=== PATIENT | female | born 1995 | race Caucasian/White ===

== ENCOUNTER 2017-12-23 04:33 | Observation (INO) | payer OTHER ==
[2017-12-23] VITALS (7 sets, daily range): BP systolic 100–108; BP diastolic 53–65; PULSE 80–103; RESP 16–18; TEMP 97.6–98.4; O2SAT 96–100
[~2017-12-23] VITALS: Ht 170.2 cm; Wt 60.0 kg
[2017-12-23] MEDS ORDERED: SODIUM CHLORID 0.9% 500 ML INJ 500 ML IV ONE (05:15)
--- NOTE | 2017-12-23 05:30 | PD ---
HPI Chief Complaint: Injury Time Seen by Provider: 05:06 Travel History International Travel<30 days: No Contact w/Intl Traveler<30days: No Traveled to known affect area: No History of Present Illness HPI The patient is a 22 year old female who presents to the [facility] emergency department with a history of losing her balance and inverting her ankle at approximately 3:30 AM. The patient arrives in the emergency department at approximately 5 AM with complaints of left ankle pain. The patient is intoxicated and initially refusing to have an x-ray or IV access obtained in spite of having a left ankle that is deformed and unable to support her weight. The patient's friends are the bedside. The patient is visiting from [place]. Her sister was called by the patient's friends and the patient seemed to become more calm after speaking to her sister. She reports that she has been attempting to walk on her ankle, however it does not support her. She denies falling and hitting her head. She denies having any loss of consciousness. She denies having any neck pain, paresthesias, or weakness of the muscles of her extremities. Otherwise on review of systems, she denies having any recent fevers, cough, congestion, neck pain, chest pain, shortness of breath, abdominal pain, vomiting, diarrhea, urinary symptoms, or other neurologic symptoms. [facility] Past Medical History Narrative Medical The patient's past medical history is reportedly none. Medical History: Denies Significant Hx ?: Not Past Surgical History Surgical History: No Previous Surgery Social History Alcohol Use: Yes Tobacco Use: No Substance Use: No Allergies-Medications (Allergen,Severity, Reaction): Coded Allergies: No Known Allergies (Unverified , 12/23/17) Reported Meds & Prescriptions Reported Meds & Active Scripts Active Aspirin DR (Aspirin) 81 Mg Tabdr 81 Mg PO BID Hydrocodone-Acetamin 10-325 mg (Hydrocodone/Acetaminophen) 10 Mg-325 Mg Tablet 1 Tab PO Q4HR PRN Review of Systems Except as stated in HPI: all other systems reviewed are Neg General / Constitutional: No: Fever Eyes: No: Visual changes HENT: No: Headaches Cardiovascular: No: Chest Pain or Discomfort Respiratory: No: Shortness of Breath Gastrointestinal: No: Abdominal Pain Genitourinary: No: Dysuria Musculoskeletal: Positive: Myalgias, Arthralgias, Limited ROM, Edema, Pain Skin: No Rash Neurologic: Positive: Change in Mentation, Slurred Speech, No: Weakness, Focal Abnormalities, Sensory Disturbance Psychiatric: Positive: Substance Abuse, No: Depression Endocrine: No: Polydipsia Hematologic/Lymphatic: No: Easy Bruising Physical Exam Narrative General: The patient is a well-developed well-nourished female in no acute distress, initially uncooperative, refusing to have IV access obtained, or any type of imaging done in spite of having a deformed appearing ankle. Head and Neck exam: Head is normocephalic atraumatic. Eyes: EOMI, pupils are equal round and reactive to light. Nose: Midline septum with pink mucous membranes Mouth: Dentition unremarkable. Moist mucus membranes. Posterior oropharynx is not erythematous. No tonsillar hypertrophy. Uvula midline. Airway patent. Neck: No palpable lymphadenopathy. No nuchal rigidity. No thyromegaly. Cardiovascular: Regular rate and rhythm without murmurs, gallops, or rubs. Lungs: Clear to auscultation bilaterally. No wheezes, rhonchi, or rales. Abdomen: Soft, without tenderness to palpation in all 4 quadrants of the abdomen. No guarding, rebound, or rigidity. Normal bowel sounds are audible. No tenderness on palpation of McBurney's point. Extremities: No clubbing, cyanosis, or edema, except in the area of interest, the left ankle. The patient is noted to have deformity, crepitus on palpation of the distal ankle. There is tenderness on palpation of the medial and lateral malleolus. There is significant swelling over the distal tibia. The patient does however have soft compartments. She has intact sensation over all toes. She has less than 3 second capillary refill. 2+ pulses in all 4 extremities. Back: No spinous process tenderness to palpation. No costovertebral angle tenderness to palpation. Neurologic Exam: Grossly nonfocal with a strong odor of alcohol about her. The patient also has slurred speech. Skin Exam: No rash noted. Intact skin that is warm and dry. Data Data Last Documented VS Vital Signs Date Time Temp Pulse Resp B/P (MAP) Pulse Ox O2 Delivery O2 Flow Rate FiO2 12/23/17 04:34 98.4 91 16 108/58 (75) 100 Orders Orders Complete Blood Count With Diff (12/23/17 05:06) Basic Metabolic Panel (Bmp) (12/23/17 05:06) Prothrombin Time / Inr (Pt) (12/23/17 05:06) Act Partial Throm Time (Ptt) (12/23/17 05:06) Iv Access Insert/Monitor (12/23/17 05:06) Ecg Monitoring (12/23/17 05:06) Oximetry (12/23/17 05:06) Ed Urine Pregnancytest Poc (12/23/17 05:06) Sodium Chlorid 0.9% 500 Ml Inj (Ns 500 M (12/23/17 05:15) Ankle, Complete (Fel7iwz) (12/23/17 05:30) Tibia/Fibula (Ap/Lat) (12/23/17 05:30) Morphine Inj (Morphine Inj) (12/23/17 06:00) Ondansetron Inj (Zofran Inj) (12/23/17 06:00) Ice/Cold Pack (12/23/17 05:48) Splint Or Brace Apply/Monitor (12/23/17 05:48) Admit Order (Ed Use Only) (12/23/17 06:31) Consult Orthopedic (12/23/17 ) Alcohol (Ethanol) (12/23/17 06:36) Labs Laboratory Tests Test 12/23/17 05:16 White Blood Count 6.5 TH/MM3 Red Blood Count 4.18 MIL/MM3 Hemoglobin 12.6 GM/DL Hematocrit 36.5 % Mean Corpuscular Volume 87.3 FL Mean Corpuscular Hemoglobin 30.1 PG Mean Corpuscular Hemoglobin Concent 34.5 % Red Cell Distribution Width 13.9 % Platelet Count 223 TH/MM3 Mean Platelet Volume 9.8 FL Neutrophils (%) (Auto) 51.2 % Lymphocytes (%) (Auto) 41.2 % Monocytes (%) (Auto) 6.8 % Eosinophils (%) (Auto) 0.5 % Basophils (%) (Auto) 0.3 % Neutrophils # (Auto) 3.3 TH/MM3 Lymphocytes # (Auto) 2.7 TH/MM3 Monocytes # (Auto) 0.4 TH/MM3 Eosinophils # (Auto) 0.0 TH/MM3 Basophils # (Auto) 0.0 TH/MM3 CBC Comment DIFF FINAL Differential Comment Prothrombin Time 9.7 SEC Prothromb Time International Ratio 1.0 RATIO Activated Partial Thromboplast Time 21.2 SEC Blood Urea Nitrogen 9 MG/DL Creatinine 0.79 MG/DL Random Glucose 91 MG/DL Calcium Level 7.8 MG/DL Sodium Level 141 MEQ/L Potassium Level 3.6 MEQ/L Chloride Level 106 MEQ/L Carbon Dioxide Level 25.9 MEQ/L Anion Gap 9 MEQ/L Estimat Glomerular Filtration Rate 93 ML/MIN Ethyl Alcohol Level 271 MG/DL MDM Medical Decision Making Medical Screen Exam Complete: Yes Emergency Medical Condition: Yes Medical Record Reviewed: Yes Differential Diagnosis Left ankle fracture, versus dislocation, versus fracture dislocation, versus soft tissue swelling Narrative Course During the course of the patient's emergency department visit, the patient's history, examination, and differential diagnosis were reviewed with the patient. The patient eventually did consent to care. The patient was placed on a inspector filter tip with oximetry and frequent blood pressure monitoring. The patient had IV access obtained and blood work sent for analysis. The patient was initially provided normal saline IV fluids, morphine for pain, Zofran for nausea The patient's studies were reviewed and remarkable for CBC that is within normal limit, and basic metabolic profile that is unremarkable. PT 9.7, PTT 21.2, alcohol level 271. The patient's ankle x-ray reveals a bimalleolar fracture with disruption of the ankle mortise. Tib-fib x-ray shows no other bony abnormality. The patient was placed in a Ferreira splint. A call was placed out to the orthopedic physician on-call, . She recommended that the patient be admitted to the hospitalist service. The patient's results were discussed with the patient, including the plan of care. I explained that further testing and/ or monitoring is indicated based on the patient's history, examination, and/ or laboratory findings. Therefore, I recommended admission for additional evaluation. The patient expressed understanding and was agreeable with this plan. The patient was admitted to the hospital in stable condition and [facility] Physician Communication Physician Communication The patient's case including history, pertinent physical examination findings, and laboratory studies were discussed with Dr. Starks and Dr. Flores. It was agreed that the [facility] Diagnosis Primary Impression: Bimalleolar ankle fracture Qualified Codes: S82.842A - Displaced bimalleolar fracture of left lower leg, initial encounter for closed fracture Admitting Information Admitting Physician Requests: Admit Scripts Aspirin DR (Aspirin DR) 81 Mg Tabdr 81 MG PO BID for Prevent Blood Clot, #60 TAB Prov: Terence Erwin MD 12/23/17 Hydrocodone/Acetaminophen (Hydrocodone-Acetamin 10-325 mg) 10 Mg-325 Mg Tablet 1 TAB PO Q4HR Y for Pain, #42 TAB Prov: Terence Erwin MD 12/23/17 Alayna Pastrana MD Dec 23, 2017 05:30
[2017-12-23 05:37] LABS: AUTOMATED NEUTROPHIL # 3.3 TH/MM3 (1.8-7.7); BASOPHIL % 0.3 % (0.0-2.0); EOSINOPHIL % 0.5 % (0.0-4.0); HEMATOCRIT 36.5 % (35.0-46.0); HEMOGLOBIN 12.6 GM/DL (11.6-15.3); LYMPH % 41.2 % (9.0-44.0); LYMPHOCYTE # 2.7 TH/MM3 (1.0-4.8); MEAN CELL VOLUME 87.3 FL (80.0-100.0); MEAN CORPUSCULAR HEMOGLOBIN 30.1 PG (27.0-34.0); MEAN CORPUSCULAR HGB CONC 34.5 % (32.0-36.0); MEAN PLATELET VOLUME 9.8 FL (7.0-11.0); MONO % 6.8 % (0.0-8.0); MONOCYTE # 0.4 TH/MM3 (0-0.9); NEUT % 51.2 % (16.0-70.0); PLATELET COUNT 223 TH/MM3 (150-450); RED BLOOD COUNT 4.18 MIL/MM3 (4.00-5.30); RED CELL DISTRIBUTION WIDTH 13.9 % (11.6-17.2); WHITE BLOOD COUNT 6.5 TH/MM3 (4.0-11.0)
[2017-12-23 05:55] LABS: PROTHROMBIN TIME - PATIENT 9.7 SEC (9.8-11.6)
[2017-12-23] MEDS ORDERED: ONDANSETRON HCL 4 MG/2 ML VIAL IV PUSH ONE (06:00)
[2017-12-23] MEDS ORDERED: MORPHINE SULFATE 2 MG/ML INJ IV PUSH ONE (06:00)
--- NOTE | 2017-12-23 06:00 | RADRPT ---
EXAM DATE/TIME: 12/23/2017 05:31 [facility] COMPARISON: No previous studies available for comparison. INDICATIONS : Fall pain in left ankle. MEDICAL HISTORY : None. SURGICAL HISTORY : None. ENCOUNTER: Initial ACUITY: 1 day PAIN SCORE: 5/10 LOCATION: Left ankle FINDINGS: Two view examination of the left tibia demonstrates oblique fracture distal fibula. Soft tissue swell ing. Medial malleolus fracture. Bony mineralization is normal. The soft tissue structures are intac t. CONCLUSION: Bimalleolar fracture. Garland Caruso MD on December 23, 2017 at 5:56 Board Certified Radiologist. This report was verified electronically.
--- NOTE | 2017-12-23 06:01 | RADRPT ---
EXAM DATE/TIME: 12/23/2017 05:39 [facility] COMPARISON: No previous studies available for comparison. INDICATIONS : Fall pain in left ankle. MEDICAL HISTORY : None. SURGICAL HISTORY : None. ENCOUNTER: Initial ACUITY: 1 day PAIN SCORE: 6/10 LOCATION: Left ankle FINDINGS: Three view exam was performed of the left ankle. There is a minimally displaced fracture distal fibul a. Soft tissue swelling. Medial malleolus fracture also noted. Disruption of the ankle mortise. No r adiopaque foreign bodies are seen. Bony mineralization is normal. CONCLUSION: Bimalleolar fracture with disruption of the ankle mortise. Garland Caruso MD on December 23, 2017 at 5:58 Board Certified Radiologist. This report was verified electronically.
[2017-12-23 06:03] LABS: BICARBONATE 25.9 MEQ/L (21.0-32.0); CALCIUM 7.8 MG/DL (8.5-10.1); CREATININE 0.79 MG/DL (0.50-1.00)
[2017-12-23] MEDS ORDERED: SODIUM CHLOR 0.9% 1000 ML INJ 1,000 ML IV SCH (06:38)
[2017-12-23] MEDS ORDERED: SODIUM CHLORIDE 0.9% FLUSH 10 ML FLUSH IV FLUSH PRN (06:45)
[2017-12-23] MEDS ORDERED: ACETAMINOPHEN 325 MG TAB PO PRN (06:45)
[2017-12-23] MEDS ORDERED: BISACODYL 10 MG SUPP RECTAL PRN (06:45)
[2017-12-23] MEDS ORDERED: MORPHINE SULFATE 2 MG/ML INJ IV PUSH PRN (06:45)
[2017-12-23] MEDS ORDERED: LACTULOSE SYRUP 20 GM/30 ML CUP PO PRN (06:45)
[2017-12-23] MEDS ORDERED: ONDANSETRON HCL 4 MG/2 ML VIAL IVP PRN ×2 (06:45→15:45)
[2017-12-23] MEDS ORDERED: SENNOSIDES 8.6 MG TAB PO PRN (06:45)
[2017-12-23] MEDS ORDERED: NALOXONE HCL 0.4 MG/ML AMP IV PUSH PRN (06:45)
[2017-12-23] MEDS ORDERED: MAGNESIUM HYDROXIDE SUSP 30 ML CUP PO PRN ×2 (06:45→15:45)
[2017-12-23] MEDS: SODIUM CHLORIDE 0.9% FLUSH 10 ML FLUSH IV FLUSH SCH ×2 (08:13→21:00)
[2017-12-23] MEDS ORDERED: DOCUSATE SODIUM 50 MG/SENNA 8.6 MG TAB PO SCH (09:00)
--- NOTE | 2017-12-23 11:25 | PD.CONS ---
HPI Service Orthopedic Surgeons Consult Requested By Reason for Consult left ankle fracture Primary Care Physician No Primary Care Physician Admission Diagnosis Right ankle bimalleolar fx, alcohol intoxication Diagnoses: Chief Complaint: Left ankle pain History of Present Illness 22 year old female who presents to the [facility] emergency department with a history of losing her balance and inverting her ankle at approximately 3: 30 AM. The patient arrives in the emergency department at approximately 5 AM with complaints of left ankle pain. Patient denied any other injuries but was intoxicated on presentation. Review of Systems Constitutional: DENIES: Fever Endocrine: DENIES: Polyuria Eyes: DENIES: Blurred vision Ears, nose, mouth, throat: DENIES: Throat pain Respiratory: DENIES: Cough Cardiovascular: DENIES: Chest pain Gastrointestinal: DENIES: Abdominal pain Genitourinary: DENIES: Urinary incontinence Musculoskeletal: COMPLAINS OF: Joint pain, Joint Swelling Integumentary: DENIES: Rash Hematologic/lymphatic: DENIES: Bruising Immunologic/allergic: DENIES: Eczema Neurologic: DENIES: Abnormal gait Psychiatric: DENIES: Anxiety Past Family Social History Past Medical History Denies Past Surgical History Denies Reported Medications Denies Allergies: Coded Allergies: No Known Allergies (Unverified , 12/23/17) Active Ordered Medications Current Medications Medications (Trade) Dose Ordered Sig/Aiyana Route Start Time Stop Time Status Last Admin Sodium Chloride 1,000 ml @ 75 mls/hr [id number] IV 12/23/17 06:38 12/23/17 08:13 (NS Flush) 2 ml UNSCH PRN IV FLUSH 12/23/17 06:45 (NS Flush) 2 ml BID IV FLUSH 12/23/17 09:00 (Tylenol) 650 mg Q4H PRN PO 12/23/17 06:45 (Zofran Inj) 4 mg Q6H PRN IVP 12/23/17 06:45 (Narcan Inj) 0.4 mg UNSCH PRN IV PUSH 12/23/17 06:45 (Adriana-Colace) 1 tab BID PO 12/23/17 09:00 (Milk Of Magnesia Liq) 30 ml Q12H PRN PO 12/23/17 06:45 (Senokot) 17.2 mg Q12H PRN PO 12/23/17 06:45 (Dulcolax Supp) 10 mg DAILY PRN RECTAL 12/23/17 06:45 (Lactulose Liq) 30 ml DAILY PRN PO 12/23/17 06:45 (Morphine Inj) 2 mg Q3H PRN IV PUSH 12/23/17 06:45 Reported Meds & Active Scripts Active No Active Prescriptions or Reported Medications Family History Noncontributory Social History Occasional alcohol consumption Physical Exam Vital Signs Vital Signs Date Time Temp Pulse Resp B/P (MAP) Pulse Ox O2 Delivery O2 Flow Rate FiO2 12/23/17 08:07 80 17 97 Room Air 12/23/17 07:43 103 18 100/53 (69) 96 Room Air 12/23/17 06:38 100 16 102/56 (71) 96 Room Air 12/23/17 04:34 98.4 91 16 108/58 (75) 100 Physical Exam Awake, alert, no acute distress Normocephalic Pupils equal No JVD Moist mucous membranes Nonlabored respirations Regular rate Soft nontender abdomen BUE: No visible deformities or tenderness palpation. Full active range of motion and strength throughout. Sensation intact. Radial pulses palpable. LLE: Splint in place over lower extremity. Patient allergies positive EHL and FHL. Sensation intact distally. Brisk cap refill. Patient denies any hip or knee pain. Right lower extremity: No visible deformities or tenderness palpation. Full active range of motion and strength throughout. Sensation intact. Dorsalis pedis pulse palpable No rash Normal affect Laboratory Laboratory Tests Test 12/23/17 05:16 White Blood Count 6.5 Red Blood Count 4.18 Hemoglobin 12.6 Hematocrit 36.5 Mean Corpuscular Volume 87.3 Mean Corpuscular Hemoglobin 30.1 Mean Corpuscular Hemoglobin Concent 34.5 Red Cell Distribution Width 13.9 Platelet Count 223 Mean Platelet Volume 9.8 Neutrophils (%) (Auto) 51.2 Lymphocytes (%) (Auto) 41.2 Monocytes (%) (Auto) 6.8 Eosinophils (%) (Auto) 0.5 Basophils (%) (Auto) 0.3 Neutrophils # (Auto) 3.3 Lymphocytes # (Auto) 2.7 Monocytes # (Auto) 0.4 Eosinophils # (Auto) 0.0 Basophils # (Auto) 0.0 CBC Comment DIFF FINAL Differential Comment Prothrombin Time 9.7 Prothromb Time International Ratio 1.0 Activated Partial Thromboplast Time 21.2 Blood Urea Nitrogen 9 Creatinine 0.79 Random Glucose 91 Calcium Level 7.8 Sodium Level 141 Potassium Level 3.6 Chloride Level 106 Carbon Dioxide Level 25.9 Anion Gap 9 Estimat Glomerular Filtration Rate 93 Ethyl Alcohol Level 271 Result Diagram: 12/23/17 0516 12/23/17 0516 Imaging Left ankle radiographs demonstrate a displaced bimalleolar ankle fracture Assessment & Plan Assessment and Plan 22-year-old female with closed left bimalleolar ankle fracture Options of management were discussed with the patient. Given the displaced nature of her bimalleolar ankle fracture, I recommended operative intervention the form of open reduction internal fixation of her left bimalleolar ankle fracture. Risks, benefits, alternatives were discussed with the patient. Option of nonoperative management was discussed with the patient. This is likely to lead to an unstable ankle given the nature of her fracture. Risks of surgery including but not limited to: Infection, nonunion or malunion, hardware malposition or failure, persistent ankle pain and or stiffness, possible need for further surgery, neurovascular injury, and other interesting complications were discussed with the patient. Patient is nothing by mouth for possible surgery later today Radha Starks MD Dec 23, 2017 11:25
[2017-12-23] MEDS ORDERED: ceFAZolin INJ 1,000 MG VIAL IV ONE ×2 (12:00→14:00)
[2017-12-23] MEDS ORDERED: GLYCOPYRROLATE 1 MG/5 ML SYRINGE IV PUSH ONE (12:00)
[2017-12-23] MEDS ORDERED: PHENYLEPH/NS 1000 MCG/10 ML SYR IV ONE (12:00)
[2017-12-23] MEDS ORDERED: LIDOCAINE HCL 1% PF 5 ML SYRINGE OTHER ONE (12:00)
[2017-12-23] MEDS ORDERED: PROPOFOL 200 MG/20 ML AMP IV ONE (12:00)
[2017-12-23] MEDS ORDERED: LACTATED RINGER'S 1000 ML INJ 1,000 ML IV ONE (12:00)
[2017-12-23] MEDS ORDERED: DEXAMETHASONE SOD PHOS 4 MG/ML VIAL IV ONE (12:00)
[2017-12-23] MEDS ORDERED: ROCURONIUM INJ 50 MG/5 ML SYRINGE IV PUSH ONE (12:00)
[2017-12-23] MEDS ORDERED: ONDANSETRON HCL 4 MG/2 ML VIAL IV ONE (12:00)
[2017-12-23] MEDS ORDERED: NEOSTIGMINE 5 MG/5 ML SYRINGE IV PUSH ONE (12:00)
--- NOTE | 2017-12-23 12:40 | HHI.HP ---
[facility] No Primary Care Physician Admission Diagnosis Right ankle bimalleolar fx, alcohol intoxication Diagnoses: Chief Complaint: Loosing balance, fall. Travel History International Travel<30 Days: No Contact w/Intl Traveler <30 Da: No Traveled to Known Affected Are: No History of Present Illness Ms. Turk is a pleasant 22 year old female with no significant medical or surgical history who presents to the ED on 12/23/2017 after she lost her balance and injured her left ankle resulting in significant left ankle pain. Radiological studies indicated left sided bimalleolar fracture. Orthopedic surgery was subsequently consulted and patient is scheduled for surgery today. Patient denies any chest pain, shortness of breath, fever, chills. Denies any cough, abdominal pain, changes in bowel or bladder habits. Review of Systems Except as stated in HPI: all other systems reviewed are Neg Past Family Social History Past Medical History No significant past medical history. Past Surgical History No significant past surgical history. Allergies: Coded Allergies: No Known Allergies (Unverified , 12/23/17) Family History No family history of pre-mature CAD, DM, HTN Social History Admits to alcohol consumption. Alcohol level was 271 upon admission on 2017. Physical Exam Vital Signs Vital Signs Date Time Temp Pulse Resp B/P (MAP) Pulse Ox O2 Delivery O2 Flow Rate FiO2 12/23/17 11:25 93 18 103/60 (74) 96 Room Air 12/23/17 08:07 80 17 97 Room Air 12/23/17 07:43 103 18 100/53 (69) 96 Room Air 12/23/17 06:38 100 16 102/56 (71) 96 Room Air 12/23/17 04:34 98.4 91 16 108/58 (75) 100 Physical Exam GENERAL: This is a well-nourished, well-developed patient, in no apparent distress. SKIN: No rashes, ecchymoses or lesions. Warm and dry. HEAD: Atraumatic. Normocephalic. No temporal or scalp tenderness. EYES: Pupils equal round and reactive. No injection or drainage. ENT: Nose without bleeding, purulent drainage or septal hematoma. Airway patent. NECK: Trachea midline. No lymphadenopathy. Supple, nontender, no meningeal signs. CARDIOVASCULAR: Regular rate and rhythm without murmurs, gallops, or rubs. No JVD. RESPIRATORY: Clear to auscultation. Breath sounds equal bilaterally. No wheezes , rales, or rhonchi. GASTROINTESTINAL: Abdomen soft, non-tender, nondistended. No guarding. MUSCULOSKELETAL: Extremities without clubbing, cyanosis, or edema. Left lower ext s/p cast placement. NEUROLOGICAL: Awake and alert. Cranial nerves II through XII intact. No focal neurological deficits. Normal speech. Laboratory Laboratory Tests Test 12/23/17 05:16 White Blood Count 6.5 Red Blood Count 4.18 Hemoglobin 12.6 Hematocrit 36.5 Mean Corpuscular Volume 87.3 Mean Corpuscular Hemoglobin 30.1 Mean Corpuscular Hemoglobin Concent 34.5 Red Cell Distribution Width 13.9 Platelet Count 223 Mean Platelet Volume 9.8 Neutrophils (%) (Auto) 51.2 Lymphocytes (%) (Auto) 41.2 Monocytes (%) (Auto) 6.8 Eosinophils (%) (Auto) 0.5 Basophils (%) (Auto) 0.3 Neutrophils # (Auto) 3.3 Lymphocytes # (Auto) 2.7 Monocytes # (Auto) 0.4 Eosinophils # (Auto) 0.0 Basophils # (Auto) 0.0 CBC Comment DIFF FINAL Differential Comment Prothrombin Time 9.7 Prothromb Time International Ratio 1.0 Activated Partial Thromboplast Time 21.2 Blood Urea Nitrogen 9 Creatinine 0.79 Random Glucose 91 Calcium Level 7.8 Sodium Level 141 Potassium Level 3.6 Chloride Level 106 Carbon Dioxide Level 25.9 Anion Gap 9 Estimat Glomerular Filtration Rate 93 Ethyl Alcohol Level 271 Result Diagram: 12/23/1716 12/23/17515 Imaging Last Impressions Tibia/Fibula X-Ray 12/23/17529 Signed Impressions: Service Date/Time: Saturday, December 23, 2017 05:31 - CONCLUSION: Bimalleolar fracture. Garland Caruso MD Ankle X-Ray 12/23/17529 Signed Impressions: Service Date/Time: Saturday, December 23, 2017 05:39 - CONCLUSION: Bimalleolar fracture with disruption of the ankle mortise. MD Paulo Cunningham VTE Risk Assessment Caprini VTE Risk Assessment: No/Low Risk (score <= 1) Caprini Risk Assessment Model Point Value = 1 Point Value = 2 Point Value = 3 Point Value = 5 Age 41-60 Minor surgery BMI > 25 kg/m2 Swollen legs Varicose veins or History of unexplained or recurrent spontaneous Oral contraceptives or hormone replacement Sepsis (< 1 month) Serious lung disease, including pneumonia (< 1 month) Abnormal pulmonary function Acute myocardial infarction Congestive heart failure (< 1 month) History of inflammatory bowel disease Medical patient at bed rest Age 61-74 Arthroscopic surgery Major open surgery (> 45 min) Laparoscopic surgery (> 45 min) Malignancy Confined to bed (> 72 hours) Immobilizing plaster cast Central venous access Age >= 75 History of VTE Family history of VTE Factor V Leiden Prothrombin [id number] Lupus anticoagulant Anticardiolipin antibodies Elevated serum homocysteine Heparin-induced thrombocytopenia Other congenital or acquired thrombophilia Stroke (< 1 month) Elective arthroplasty Hip, pelvis, or leg fracture Acute spinal cord injury (< 1 month) Prophylaxis Regimen Total Risk Factor Score Risk Level Prophylaxis Regimen 0-1 Low Early ambulation 2 Moderate Order ONE of the following: *Sequential Compression Device (SCD) *Heparin 5000 units SQ BID 3-4 Higher Order ONE of the following medications: *Heparin 5000 units SQ TID *Enoxaparin/Lovenox 40 mg SQ daily (WT < 150 kg, CrCl > 30 mL/min) *Enoxaparin/Lovenox 30 mg SQ daily (WT < 150 kg, CrCl > 10-29 mL/min) *Enoxaparin/Lovenox 30 mg SQ BID (WT < 150 kg, CrCl > 30 mL/min) AND/OR *Sequential Compression Device (SCD) 5 or more Highest Order ONE of the following medications: *Heparin 5000 units SQ TID (Preferred with Epidurals) *Enoxaparin/Lovenox 40 mg SQ daily (WT < 150 kg, CrCl > 30 mL/min) *Enoxaparin/Lovenox 30 mg SQ daily (WT < 150 kg, CrCl > 10-29 mL/min) *Enoxaparin/Lovenox 30 mg SQ BID (WT < 150 kg, CrCl > 30 mL/min) AND *Sequential Compression Device (SCD) Assessment and Plan Problem List: (1) Left malleolar fracture ICD Code: S82.892A - Other fracture of left lower leg, initial encounter for closed fracture (2) Alcohol intoxication ICD Code: F10.929 - Alcohol use, unspecified with intoxication, unspecified Assessment and Plan Ms. Turk is a 22 year old female with no significant medical history who presented to the ED on 12/23/2017 due to left ankle injury. Her alcohol level was 271 on presentation. Radiological work up indicates left malleolar fracture. Left Malleolar fracture Orthopedic surgery evaluated patient. Likely surgical intervention today. Range, Morphine for pain. Bowel regimen Alcohol intoxication Patient is counselled regarding her excessive drinking habits. Full code. SCDs, Ambulation. Discharge plan: Possibly discharge on 12/24/2017 after Ortho clearance. Physician Certification 2 Midnight Certification Type: Admission for Inpatient Services Order for Inpatient Services The services are ordered in accordance with Medicare regulations or non- Medicare payer requirements, as applicable. In the case of services not specified as inpatient-only, they are appropriately provided as inpatient services in accordance with the 2-midnight benchmark. Estimated LOS (days): 2 days is the estimated time the patient will need to remain in the hospital, assuming treatment plan goals are met and no additional complications. Post-Hospital Plan: Seb Clifford DO Dec 23, 2017 12:40
[2017-12-23] MEDS ORDERED: ACETAMINOPHEN 1000 MG/100 ML 100 ML IV ONE (13:05)
[2017-12-23] MEDS ORDERED: HYDROmorphone HCL PF 2 MG/ML VIAL ONE (13:06)
--- NOTE | 2017-12-23 13:26 | PD.CONS ---
HPI Service Orthopedic Surgeons Consult Requested By Reason for Consult ER staff Primary Care Physician No Primary Care Physician Admission Diagnosis Right ankle bimalleolar fx, alcohol intoxication Diagnoses: History of Present Illness 22 year old female who presents to the [facility] emergency department with a history of losing her balance and inverting her ankle at approximately 3: 30 AM. The patient arrives in the emergency department at approximately 5 AM with complaints of left ankle pain. Patient denied any other injuries but was intoxicated on presentation.. The patient was unable to bear weight. She now presents for surgical evaluation Review of Systems Constitutional: DENIES: Diaphoretic episodes, Fatigue, Fever, Weight gain, Weight loss, Chills, Dizziness, Change in appetite, Night Sweats Endocrine: DENIES: Abnorml menstrual pattern, Heat/cold intolerance, Polydipsia , Polyuria, Polyphagia Eyes: DENIES: Blurred vision, Diplopia, Eye inflammation, Eye pain, Vision loss , Photosensitivity, Double Vision Ears, nose, mouth, throat: DENIES: Tinnitus, Hearing loss, Vertigo, Nasal discharge, Oral lesions, Throat pain, Hoarseness, Ear Pain, Running Nose, Epistaxis, Sinus Pain, Toothache, Odynophagia Respiratory: DENIES: Apneas, Cough, Snoring, Wheezing, Hemoptysis, Sputum production, Shortness of breath Cardiovascular: DENIES: Chest pain, Palpitations, Syncope, Dyspnea on Exertion , PND, Lower Extremity Edema, Orthopnea, Claudication Gastrointestinal: DENIES: Abdominal pain, Black stools, Bloody stools, Constipation, Diarrhea, Nausea, Vomiting, Difficulty Swallowing, Anorexia Genitourinary: DENIES: Abnormal vaginal bleeding, Dysmenorrhea, Dyspareunia, Sexual dysfunction, Urinary frequency, Urinary incontinence, Urgency, Hematuria , Dysuria, Nocturia, Vaginal discharge Musculoskeletal: COMPLAINS OF: Joint pain Integumentary: DENIES: Abnormal pigmentation, Pruritus, Rash, Nail changes, Breast masses, Breast skin changes, Nipple discharge Hematologic/lymphatic: DENIES: Bruising, Lymphadenopathy Immunologic/allergic: DENIES: Eczema, Urticaria Neurologic: DENIES: Abnormal gait, Headache, Localized weakness, Paresthesias, Seizures, Speech Problems, Tremor, Poor Balance Psychiatric: DENIES: Anxiety, Confusion, Mood changes, Depression, Hallucinations, Agitation, Suicidal Ideation, Homicidal Ideation, Delusions Past Family Social History Past Medical History Denies Past Surgical History Denies Allergies: Coded Allergies: No Known Allergies (Unverified , 12/23/17) Active Ordered Medications Current Medications Medications (Trade) Dose Ordered Sig/Aiyana Route Start Time Stop Time Status Last Admin Sodium Chloride 1,000 ml @ 75 mls/hr [id number] IV 12/23/17 06:38 12/23/17 08:13 (NS Flush) 2 ml UNSCH PRN IV FLUSH 12/23/17 06:45 (NS Flush) 2 ml BID IV FLUSH 12/23/17 09:00 (Tylenol) 650 mg Q4H PRN PO 12/23/17 06:45 (Zofran Inj) 4 mg Q6H PRN IVP 12/23/17 06:45 (Narcan Inj) 0.4 mg UNSCH PRN IV PUSH 12/23/17 06:45 (Adriana-Colace) 1 tab BID PO 12/23/17 09:00 (Milk Of Magnesia Liq) 30 ml Q12H PRN PO 12/23/17 06:45 (Senokot) 17.2 mg Q12H PRN PO 12/23/17 06:45 (Dulcolax Supp) 10 mg DAILY PRN RECTAL 12/23/17 06:45 (Lactulose Liq) 30 ml DAILY PRN PO 12/23/17 06:45 (Morphine Inj) 2 mg Q3H PRN IV PUSH 12/23/17 06:45 Reported Meds & Active Scripts Active No Active Prescriptions or Reported Medications Family History Noncontributory Social History Occasional alcohol consumption Physical Exam Vital Signs Vital Signs Date Time Temp Pulse Resp B/P (MAP) Pulse Ox O2 Delivery O2 Flow Rate FiO2 12/23/17 12:43 86 17 103/59 (74) 96 12/23/17 11:25 93 18 103/60 (74) 96 Room Air 12/23/17 08:07 80 17 97 Room Air 12/23/17 07:43 103 18 100/53 (69) 96 Room Air 12/23/17 06:38 100 16 102/56 (71) 96 Room Air 12/23/17 04:34 98.4 91 16 108/58 (75) 100 Physical Exam HEENT: Normocephalic atraumatic pupils equal round reactive. NECK: Supple. No abnormal masses. Full range of motion. CHEST: Clear to auscultation with no rales or rhonchi's or wheezes. HEART: Regular rate and rhythm. No murmurs. ABDOMEN: Soft, nontender, no masses. Normal active bowel sounds. GENITOURINARY: Deferred. MUSCULOSKELETAL: Left ankle is in a splint. Mild swelling. Sensation to the toes is normal. She wiggles her toes without difficulty. No obvious injury to either upper extremity or the right lower extremity Laboratory Laboratory Tests Test 12/23/17 05:16 White Blood Count 6.5 Red Blood Count 4.18 Hemoglobin 12.6 Hematocrit 36.5 Mean Corpuscular Volume 87.3 Mean Corpuscular Hemoglobin 30.1 Mean Corpuscular Hemoglobin Concent 34.5 Red Cell Distribution Width 13.9 Platelet Count 223 Mean Platelet Volume 9.8 Neutrophils (%) (Auto) 51.2 Lymphocytes (%) (Auto) 41.2 Monocytes (%) (Auto) 6.8 Eosinophils (%) (Auto) 0.5 Basophils (%) (Auto) 0.3 Neutrophils # (Auto) 3.3 Lymphocytes # (Auto) 2.7 Monocytes # (Auto) 0.4 Eosinophils # (Auto) 0.0 Basophils # (Auto) 0.0 CBC Comment DIFF FINAL Differential Comment Prothrombin Time 9.7 Prothromb Time International Ratio 1.0 Activated Partial Thromboplast Time 21.2 Blood Urea Nitrogen 9 Creatinine 0.79 Random Glucose 91 Calcium Level 7.8 Sodium Level 141 Potassium Level 3.6 Chloride Level 106 Carbon Dioxide Level 25.9 Anion Gap 9 Estimat Glomerular Filtration Rate 93 Ethyl Alcohol Level 271 Result Diagram: 12/23/17 0516 12/23/17 0516 Assessment & Plan Assessment and Plan Left ankle bimalleolar fracture. PLAN: Surgery: Open treatment internal fixation left ankle fracture. Consent: There are risks with this injury including infection bleeding loss of motion need for further surgery neurologic or vascular injury. The patient understands these issues and wishes to proceed forward with surgery as outlined above. The patient is from [place]. She will require follow-up care when she returns to [place] Terence Erwin MD Dec 23, 2017 13:26
[2017-12-23] MEDS ORDERED: BUPIVACAINE/EPINEPHRINE 0.25% PF 10 ML VIAL ONE (14:23)
[2017-12-23] MEDS ORDERED: GENTAMICIN SULFATE 80 MG/2 ML VIAL ONE (14:24)
--- NOTE | 2017-12-23 15:41 | PD.OP ---
cc: Terence Erwin MD Operative Report Date of Surgery: Dec 23, 2017 Preoperative Diagnosis: Left ankle bi-malleolar fracture Postoperative Diagnosis: Same Procedure: Open treatment internal fixation left ankle by malleolar fracture with plates and screws medial and lateral Anesthesia: Gen. Surgeon: Terence Erwin Hand Candle Molder(s): BLADIMIR Valencia Operation and Findings: EBL: Minimal cc INDICATION: This patient is a 22-year-old [place] female visiting from the who sustained a unstable left ankle fracture last night after midnight. She was enabled and plate. She presented to the emergency room. She was found to have an unstable ankle fracture. I saw her the morning after her injury. She is felt to be a candidate for surgical treatment. Operative consent was obtained with the patient. She understands that there are risks including infection, bleeding, loss of motion, loss of sensation, failure bone, failure of healing, need for further surgery. NOTE: Kaela Valencia PA-C was present for the entire surgical procedure as my bindery library technical assistant. In my medical opinion her skill and care was necessary for the proper management of this patient. PROCEDURE: The patient brought to the operating room and anesthetized in the supine position. The left leg was visualized under fluoroscopy. Antibiotics were given within an one hour time window and a timeout was done. The lateral side was approached. After exsanguination the tourniquet was inflated to 250 mmHg. A longitudinal incision was made. The fracture was exposed. Multiple clamps used to hold this in proper position. A proper length ITS locking plate was positioned and held. Multiple screws were placed as well as a lag screw. Overall alignment was satisfactory case was noted. The wound was closed in layers with 2-0 Vicryl 3-0 Vicryl and 3-0 nylon mattress sutures. A medial incision was made. A clamp was used to hold the medial malleolus and anatomic alignment. There was a very small avulsion fragment anterior and medial. A 4 mm system was too large. A 2-0/3-0 cannulated screw system was utilized. 2 pins were placed in good fashion and position. There measured carefully. They were drilled and the proper length screws were advanced across the wire across the fracture. The fracture was reduced anatomically. The wound was closed with 3-0 nylon in a mattress fashion The wound was irrigated copiously and hemostasis was controlled. Intraoperative imaging showed anatomic reduction. Alignment was satisfactory. A posterior splint was fitted and applied. The patient was awakened and taken to recovery room satisfactory condition. The sponge count and needle count and sponge counts were all correct FINDINGS: There was a small avulsed fragment medially. The options was either a tension band technique or small cannulated screws. Small cannulated screws were utilized and felt to have excellent fixation. There was no complication. We anticipate nonweightbearing for approximately 5-6 weeks. Total immobilization will be in a rigid cast for 7-8 weeks and a removable brace for 3 -4 weeks. Terence Erwin MD Dec 23, 2017 15:41
[2017-12-23] MEDS ORDERED: ASPIRIN EC 81 MG TABEC PO ONE (15:45)
[2017-12-23] MEDS ORDERED: MORPHINE SULFATE 8 MG/ML INJ IV PUSH PRN (15:45)
[2017-12-23] MEDS ORDERED: Post-op Orders (for Pharmacy) XX ONE (15:45)
[2017-12-23] MEDS ORDERED: ACETAMINOPHEN/HYDROcodone 325 MG/10 MG TAB PO PRN ×2 (15:45)
[2017-12-23] MEDS ORDERED: diphenhydrAMINE HCL 25 MG CAP PO PRN (15:45)
[2017-12-23] MEDS ORDERED: HYDR-3583 PO (15:46)
[2017-12-23] MEDS ORDERED: ECASA81 PO (15:46)
[2017-12-23] MEDS ORDERED: DO NOT ADM ANY ANTICOAGULANT DRUGS PRN (16:09)
[2017-12-23] MEDS ORDERED: MIDAZOLAM HCL 2 MG/2 ML VIAL ONE (16:16)
[2017-12-23] MEDS: LACTATED RINGER'S 1000 ML INJ 1,000 ML IV SCH (17:00)
--- NOTE | 2017-12-23 19:19 | RADRPT ---
EXAM DATE/TIME: 12/23/2017 15:14 [facility] COMPARISON: ANKLE LEFT COMPLETE ([id number]), December 23, 2017, 5:39. INDICATIONS : ORIF of the left ankle. MEDICAL HISTORY : None. SURGICAL HISTORY : None. ENCOUNTER: Subsequent ACUITY: 1 day PAIN SCORE: Non-responsive. LOCATION: Left ankle FINDINGS: There is a plate along the lateral aspect of the fibula secured by multiple screws. There is a single screw through the distal fibula not involving the plate. There are 2 screws at the medial malleolus. The surgical hardware appears well-placed. Ankle is normally aligned. There is soft tissue swelling. CONCLUSION: Successful ORIF. Gurdeep Godoy MD on December 23, 2017 at 19:16 Board Certified Radiologist. This report was verified electronically.
[2017-12-23] MEDS: DOCUSATE SODIUM 50 MG/SENNA 8.6 MG TAB PO SCH (21:00)
[2017-12-23] MEDS: CALCIUM/VITAMIN D 250 MG/125 U TAB PO SCH (21:03)
[2017-12-23] MEDS: ASPIRIN EC 81 MG TABEC PO SCH (21:03)
[2017-12-24 00:26] VITALS: BP 118/78; PULSE 82; RESP 17; TEMP 99; O2SAT 97
[2017-12-24] MEDS: LACTATED RINGER'S 1000 ML INJ 1,000 ML IV SCH ×2 (01:32→11:32)
[2017-12-24 04:31] VITALS: BP 104/64; PULSE 80; RESP 17; TEMP 98; O2SAT 96
[2017-12-24 08:00] VITALS: BP 111/60; PULSE 113; RESP 17; TEMP 97.7; O2SAT 97
--- NOTE | 2017-12-24 08:01 | HHI.PR ---
Subjective Remarks in no acute distress. resting comfortably. pain is controlled. no new complaints. Objective Vitals Vital Signs Date Time Temp Pulse Resp B/P (MAP) Pulse Ox O2 Delivery O2 Flow Rate FiO2 12/24/17 04:31 98.0 80 17 104/64 (77) 96 12/24/17 00:26 99.0 82 17 118/78 (91) 97 12/23/17 20:05 100 Nasal Cannula 2.00 12/23/17 20:00 97.6 80 17 108/65 (79) 96 12/23/17 16:45 82 12 113/58 (76) 100 Nasal Cannula 2 12/23/17 16:30 76 14 108/57 (74) 100 Nasal Cannula 2 12/23/17 16:15 80 14 117/60 (79) 100 Nasal Cannula 2 12/23/17 16:07 97.7 85 12 109/71 (84) 100 Nasal Cannula 2 12/23/17 12:43 86 17 103/59 (74) 96 12/23/17 11:25 93 18 103/60 (74) 96 Room Air 12/23/17 08:07 80 17 97 Room Air I/O 12/23/17 12/23/17 12/23/17 12/24/17 12/24/17 12/24/17 07:00 15:00 23:00 07:00 15:00 23:00 Intake Total 500 ml 1200 ml 580 ml Output Total 20 ml Balance 500 ml 1180 ml 580 ml Intake Oral 580 ml IV Total 500 ml 100 ml Other 1100 ml Output Estimated Blood Loss 20 ml # Voids 1 3 # Bowel Movements 1 Result Diagram: 12/23/1751512/23/17515 Imaging Last Impressions Tibia/Fibula X-Ray 12/23/17529 Signed Impressions: Service Date/Time: Saturday, December 23, 2017 05:31 - CONCLUSION: Bimalleolar fracture. Garland Caruso MD Ankle X-Ray 12/23/17529 Signed Impressions: Service Date/Time: Saturday, December 23, 2017 05:39 - CONCLUSION: Bimalleolar fracture with disruption of the ankle mortise. Garland Caruso MD Objective Remarks GENERAL: This is a well-nourished, well-developed patient, in no apparent distress. CARDIOVASCULAR: Regular rate and regular rhythm without murmurs, gallops, or rubs. RESPIRATORY: Clear to auscultation. Breath sounds equal bilaterally. No wheezes , rales, or rhonchi. GASTROINTESTINAL: Abdomen soft, non-tender, nondistended. Normal, active bowel sounds MUSCULOSKELETAL: left leg covered with clean dressing. NEURO: Alert & Oriented x4 to person, place, time, situation. Moves all ext x4 Procedures ORIF left ankle fracture. Medications and IVs Inpatient Medications Acetaminophen (Tylenol) 650 mg Q4H PRN PO TEMP > 100.4; Start 12/23/17 at 06:45 Acetaminophen/ Hydrocodone Bitart ([place] 10-325 Mg) 2 tab Q6H PRN PO PAIN GREATER THAN/EQUAL TO 5; Start 12/23/17 at 15:45 Aspirin (Ecotrin Ec) 81 mg ONCE ONCE PO Last administered on 12/23/17at 17:35; Start 12/23/17 at 15:45; Stop 12/23/17 at 16:21; Status DC Bisacodyl (Dulcolax Supp) 10 mg DAILY PRN RECTAL SEVERE CONSITIPATION; Start at 06:45 Calcium/Vitamin D (Oscal-D 250-125) 250 mg TID PO Last administered on at 21:03; Start 12/23/17 at 18:00 Cefazolin Sodium (Ancef Inj) 2,000 mg ONCE ONCE IV Last administered on at 14:02; Start 12/23/17 at 14:00; Stop 12/23/17 at 15:10; Status DC Cefazolin Sodium 1000 mg/Sodium Chloride 100 ml @ 200 mls/hr Q8H IV Last administered on 12/24/17at 05:42; Start 12/23/17 at 22:00; Stop 12/24/17 at 14:29 Diphenhydramine HCl (Benadryl) 25 mg Q6H PRN PO ITCHING; Start 12/23/17 at 15: 45 Lactated Ringer's 1,000 ml @ 100 mls/hr Q10H IV Last administered on at 17:00; Start 12/23/17 at 15:32 Lactulose (Lactulose Liq) 30 ml DAILY PRN PO SEVERE CONSITIPATION; Start at 06:45 Magnesium Hydroxide (Milk Of Rosalinda Lidc) 10 ml Q12H PRN PO CONSTIPATION; Start 12/23/17 at 15:45; Stop 12/23/17 at 15:45; Status DC Miscellaneous Information ALL NURSING DEPARTME... UNSCH PRN .XX SEE LABEL COMMENTS; Start 12/23/17 at 16:09; Stop 12/24/17 at 16:08 Miscellaneous Information (Post-op Orders (for Pharmacy)) STAT ONCE XX ; Start 12/23/17 at 15:45; Stop 12/23/17 at 16:23; Status DC Morphine Sulfate (Morphine Inj) 5 mg Q4H PRN IV PUSH Breakthrough PAIN; Start 12/23/17 at 15:45 Multivitamins/ Minerals Therapeutic (Theragran M Tab) 1 tab DAILY PO ; Start at 09:00 Naloxone HCl (Narcan Inj) 0.4 mg UNSCH PRN IV PUSH SEE LABEL COMMENTS; Start at 06:45 Ondansetron HCl (Zofran Inj) 4 mg Q4H PRN IVP NAUSEA OR VOMITING; Start at 15:45 Senna/Docusate Sodium (Adriana-Colace) 1 tab BID PO ; Start 12/23/17 at 21:00 Sennosides (Senokot) 17.2 mg Q12H PRN PO Moderate constipation; Start 12/23/17 at 06:45 Sodium Chloride (NS Flush) 2 ml BID IV FLUSH ; Start 12/23/17 at 09:00 A/P Problem List: (1) Left malleolar fracture ICD Code: S82.892A - Other fracture of left lower leg, initial encounter for closed fracture (2) Alcohol intoxication ICD Code: F10.929 - Alcohol use, unspecified with intoxication, unspecified Assessment and Plan A/P Left Malleolar fracture Orthopedic surgery evaluated patient; s/p ORIF management per ortho. Alcohol intoxication Patient is counselled regarding her excessive drinking habits. Full code. SCDs, Ambulation. Discharge Planning dc home when cleared by ortho. Domingo Black MD Dec 24, 2017 08:01
[2017-12-24] MEDS ORDERED: MULTIVITAMINS/MINERALS THERAPEUTIC TAB PO SCH (09:00)
[2017-12-24] MEDS: DOCUSATE SODIUM 50 MG/SENNA 8.6 MG TAB PO SCH (09:00)
[2017-12-24] MEDS: CALCIUM/VITAMIN D 250 MG/125 U TAB PO SCH ×2 (09:11→13:45)
[2017-12-24] MEDS: ASPIRIN EC 81 MG TABEC PO SCH (09:11)
[2017-12-24] MEDS: SODIUM CHLORIDE 0.9% FLUSH 10 ML FLUSH IV FLUSH SCH (09:11)
[2017-12-24 10:25] VITALS: O2SAT 99
[2017-12-24 11:11] LABS: AUTOMATED NEUTROPHIL # 10.4 TH/MM3 (1.8-7.7); BASOPHIL % 0.1 % (0.0-2.0); HEMATOCRIT 36.3 % (35.0-46.0); HEMOGLOBIN 12.1 GM/DL (11.6-15.3); LYMPH % 10.5 % (9.0-44.0); LYMPHOCYTE # 1.3 TH/MM3 (1.0-4.8); MEAN CELL VOLUME 88.5 FL (80.0-100.0); MEAN CORPUSCULAR HEMOGLOBIN 29.4 PG (27.0-34.0); MEAN CORPUSCULAR HGB CONC 33.2 % (32.0-36.0); MEAN PLATELET VOLUME 10.1 FL (7.0-11.0); MONO % 8.9 % (0.0-8.0); MONOCYTE # 1.1 TH/MM3 (0-0.9); NEUT % 80.5 % (16.0-70.0); PLATELET COUNT 216 TH/MM3 (150-450); RED CELL DISTRIBUTION WIDTH 14.3 % (11.6-17.2); WHITE BLOOD COUNT 12.9 TH/MM3 (4.0-11.0)
[2017-12-24 11:55] LABS: BICARBONATE 27.5 MEQ/L (21.0-32.0); CALCIUM 8.5 MG/DL (8.5-10.1); CREATININE 1.01 MG/DL (0.50-1.00)
[2017-12-24 12:00] VITALS: BP 113/67; PULSE 112; RESP 17; TEMP 98.1; O2SAT 96
[2017-12-24] MEDS ORDERED: CRUTMIS35 (14:30)
--- NOTE | 2017-12-24 14:34 | PD.ORT.PN ---
Subjective Subjective Remarks She is doing well. She has moderate aching and throbbing left lower leg. No other complaints. No new CP or SOB. She has questions about discharge as she goes to school in [place] and will need to return there next week. Objective Vitals Vital Signs Date Time Temp Pulse Resp B/P (MAP) Pulse Ox O2 Delivery O2 Flow Rate FiO2 12/24/17 12:00 98.1 112 17 113/67 (82) 96 12/24/17 10:25 99 21 12/24/17 08:00 97.7 113 17 111/60 (77) 97 12/24/17 04:31 98.0 80 17 104/64 (77) 96 12/24/17 00:26 99.0 82 17 118/78 (91) 97 12/23/17 20:05 100 Nasal Cannula 2.00 12/23/17 20:00 97.6 80 17 108/65 (79) 96 12/23/17 16:45 82 12 113/58 (76) 100 Nasal Cannula 2 12/23/17 16:30 76 14 108/57 (74) 100 Nasal Cannula 2 12/23/17 16:15 80 14 117/60 (79) 100 Nasal Cannula 2 12/23/17 16:07 97.7 85 12 109/71 (84) 100 Nasal Cannula 2 I/O 12/23/17 12/23/17 12/23/17 12/24/17 12/24/17 12/24/17 07:00 15:00 23:00 07:00 15:00 23:00 Intake Total 500 ml 1200 ml 580 ml Output Total 20 ml Balance 500 ml 1180 ml 580 ml Intake Oral 580 ml IV Total 500 ml 100 ml Other 1100 ml Output Estimated Blood Loss 20 ml # Voids 1 3 # Bowel Movements 1 Result Diagram: 12/24/17 1009 12/24/17 1009 Objective Remarks Laying in bed NAD Left LE Short leg splint in place, mild swelling toes, no erythema visible Calf nontender as palpated through splint, wiggles toes freely, +sensation , +nvi Assessment & Plan Ortho Post Op Day #: 1 Problem List: Assessment and Plan pod#1 ORIF Left ankle, bimall fracture, displaced, closed. Ortho stable. Pain controlled on PO meds. Ok to d/c home when med stable. Continue NonWBing Left LE. Maintain splint and keep completely dry. ASA 81mg bid for 30 days. Will write order for crutches outpatient. If in [place], f/u in 2-3 weeks. If she returns to [place] she will need to find a physician for postop care. Neli Galan Dec 24, 2017 14:34
[2017-12-24 16:00] VITALS: BP 103/59; PULSE 117; RESP 17; TEMP 98.2; O2SAT 99
== END 2017-12-24 18:55 | disposition home or self-care (01) ==
LOC: NEPE 04:33 → NEDA 06:37 → INTOOBSV 06:37 → N07A 18:31
PROVIDERS: ADMIT Internal Medicine; ATTEND Internal Medicine
DX: S82.842A Displaced bimalleolar fracture of left lower leg, initial encounter for closed fracture (principal); F10.129 Alcohol abuse with intoxication, unspecified; Z79.82 Long term (current) use of aspirin; Y90.8 Blood alcohol level of 240 mg/100 ml or more; W19.XXXA Unspecified fall, initial encounter
CPT/HCPCS: 01480; 27814; 73590; 73600; 73610; 76000; 80048; 80307; 84703; 85025; 85610; 85730; 94150; 97163; 97164; C1713; E0113; G8987; G8988; J0131; J0690; J1100; J1170; J1580; J2250; J2270; J2370; J2405; J2710; J3010; J7030; J7040; J7120; 29515; 96361; 96374; 96375; G0378